=== PATIENT | female | born 1980 | race Caucasian/White ===

== ENCOUNTER 2020-11-11 09:16 | Outpatient (CLI) | payer OTHER, SELFPAY ==
--- NOTE | ~2020-11-11 | MMUS_ITS ---
EXAMINATION: MM diagnostic amaya BI w kendra, US breast RT complete HISTORY: Developing palpable right breast lump. TECHNIQUE: Additional 3-D tomosynthesis images of the breasts were performed and synthetic 2-D images were generated. CAD analysis was submitted and interpreted. High resolution complete right breast ul trasound was performed. COMPARISON: Comparison to multiple prior studies sequentially, with oldest reviewed study dated [place] to multiple prior studies sequentially, with oldest reviewed study dated 06/03/2014. . BREAST PARENCHYMAL COMPOSITION: The breasts are extremely dense, which lowers the sensitivity of mamm ography. FINDINGS: MAMMOGRAPHIC FINDINGS: There is no mammographic evidence for malignancy in the left breast. There is a focal asymmetric mass in the upper inner quadrant of the right breast corresponding to the palpable abnormality. There are benign calcifications. ULTRASOUND: Limited right breast ultrasound: There is a large complex heterogeneous oval-shaped mass at 12:00, 2 cm from the nipple which is largely solid. This mass measures 4.2 x 3.4 x 1.6 cm with peripheral vasc ularity. There are multiple additional simple and complicated cysts of the right breast. There is a c luster of microcysts at 9:00, 5 cm from the nipple measuring 4 mm. IMPRESSION: 1. Complex predominantly hypoechoic solid mass of the right at 12:00, 2 cm from the nipple measuring up to 4.2 cm. 2. Stereotactic right breast biopsy recommended. BI-RADS category 4, suspicious findings. Reviewed, dictated and finalized at location A. [facility] IMPRESSION: 1. Complex predominantly hypoechoic solid mass of the right at 12:00, 2 cm from the nipple measuring up to 4.2 cm. 2. Stereotactic right breast biopsy recommended. BI-RADS category 4, suspicious findings.
== END 2020-11-11 09:17 ==
PROVIDERS: PCP Family Medicine; Visit Provider Nurse Practitioner
DX: N63.10 Unspecified lump in the right breast, unspecified quadrant (principal); R92.8 Other abnormal and inconclusive findings on diagnostic imaging of breast
CPT/HCPCS: 76641; 77062; 77066; G0279

== ENCOUNTER → 2021-10-17 10:41 | Outpatient (CLI) | payer OTHER, SELFPAY ==
[2021-10-17 21:23] LABS: SARS-CoV-2 RNA PCR Negative
== END ==
PROVIDERS: PCP Family Medicine; Visit Provider Family Medicine
DX: R68.89 Other general symptoms and signs (principal); Z20.822 Contact with and (suspected) exposure to COVID-19
CPT/HCPCS: C9803; U0003; U0005